=== PATIENT | male | born 1970 | race African-American/Black ===

== ENCOUNTER 2024-06-01 11:05 | Outpatient (CLI) | payer BC | END 2024-06-01 19:53 | disposition home or self-care (01) | LOC: SCT 11:05 | PROVIDERS: ATTEND Student in an Organized Health Care Education/Training Program | DX: M17.11 Unilateral primary osteoarthritis, right knee (principal) ==

== ENCOUNTER 2024-06-13 11:41 | Day surgery (SDC) | payer BC ==
[2024-06-08 11:49] LABS: CALCIUM 9.5 mg/dL (8.4-11.0); CREATININE 1.16 mg/dL (0.55-1.30); POTASSIUM 4.2 mmol/L (3.5-5.1); PROTHROMBIN TIME 10.5 SECS (9.5-12.5); TOTAL BILIRUBIN 0.5 mg/dL (0.0-1.0); TOTAL PROTEIN, SERUM 7.8 g/dL (6.4-8.3)
[2024-06-08 11:54] LABS: BASOPHILS # (AUTO) 0.1 K/uL (0.0-0.2); BASOPHILS % (AUTO) 0.5 % (0.0-2.0); EOSINOPHILS # (AUTO) 0.3 K/uL (0.0-0.4); EOSINOPHILS % (AUTO) 2.9 % (0.0-4.0); HEMATOCRIT 51.5 % (36-54); HEMOGLOBIN 16.8 g/dL (14.0-18.0); LYMPHOCYTES # (AUTO) 2.3 K/uL (1.0-5.5); LYMPHOCYTES % (AUTO) 23.4 % (20.5-51.5); MEAN CORPUSCULAR HEMOGLOBIN 26 pg (27-31); MEAN CORPUSCULAR HGB CONC 33 % (32-36); MEAN CORPUSCULAR VOLUME 80 fL (79.0-98.0); MONOCYTES # (AUTO) 0.6 K/uL (0.0-1.0); NEUTROPHILS # (AUTO) 6.6 K/uL (1.8-7.7); NEUTROPHILS % (AUTO) 67.2 % (40.0-70.0); PLATELET COUNT (AUTO) 290 K/uL (130-430); RED BLOOD CELL COUNT(AUTO) 6.42 MIL/uL (4.2-6.2); RED CELL DISTRIBUTION WIDTH 13.8 % (9.0-15.0); WHITE BLOOD COUNT (AUTO) 9.8 K/uL (4.8-10.8)
[2024-06-08 12:13] LABS: HEMOGLOBIN A1C 6.5 % (<5.7)
[~2024-06-13] VITALS: Ht 185.4 cm; Wt 122.5 kg
[~2024-06-13 11:41] MED LIST: CEFAZOLIN SOD 2 GM in D5W 50 ML IV ONE; HYDROmorphone 1 MG/ML INJ. CARTRIDGE IVP PRN; LORATADINE 10 MG TABLET PO PRN; ceFAZolin SODIUM 2 GM in D5W 50 ML IV SCH; oxyCODONE HCL 5 MG TABLET PO PRN; traMADol HCL HCL 50 MG TABLET (ULTRAM) PO PRN
[2024-06-13] MEDS ORDERED: ONDANSETRON HCL 4 MG/2 ML VIAL IVP PRN (11:45)
[2024-06-13] MEDS ORDERED: CELECOXIB 100 MG CAPSULE ONE (11:48)
[2024-06-13] MEDS ORDERED: SCOPOLAMINE HYDROBROMIDE 1 MG PATCH .72 H (TRANSDERM-SCOP) TD ONE (11:48)
[2024-06-13] MEDS ORDERED: GABAPENTIN 300 MG CAPSULE ONE (11:48)
[2024-06-13] MEDS ORDERED: oxyCODONE HCL 10 MG TAB.ER.12H PO ONE (11:48)
[2024-06-13] MEDS ORDERED: ACETAMINOPHEN 500 MG TABLET ONE (11:48)
[2024-06-13] MEDS ORDERED: ONDANSETRON HCL 4 MG/2 ML VIAL ONE ×2 (12:15→15:55)
[2024-06-13] MEDS ORDERED: SEVOFLURANE 15 MIN GAS INH ONE (12:15)
[2024-06-13] MEDS ORDERED: TRANEXAMIC ACID 1,000 MG/10 ML VIAL ONE (12:15)
[2024-06-13] MEDS ORDERED: WATER FOR IRRIGATION,STERILE 1,000 ML IRRIG.SOLN IR ONE (12:15)
[2024-06-13] MEDS ORDERED: VANCOMYCIN HCL 1000 MG/VIAL IV ONE (12:15)
[2024-06-13] MEDS ORDERED: SUCCINYLCHOLINE CHLORIDE 20 MG/ML(QUELICIN) ONE (12:15)
[2024-06-13] MEDS ORDERED: METOCLOPRAMIDE HCL 10 MG/2 ML VIAL ONE (12:15)
[2024-06-13] MEDS ORDERED: LIDOCAINE/EPI 2% 1:100000 20 ML VIAL INJ ONE (12:15)
[2024-06-13] MEDS ORDERED: ROCURONIUM BROMIDE 10 MG/ML (ZEMURON) ONE (12:15)
[2024-06-13] MEDS ORDERED: NS IRRIG SOLN 1000 ML IR ONE (12:15)
[2024-06-13] MEDS ORDERED: KETOROLAC TROMETHAMINE 30 MG VIAL ONE (12:15)
[2024-06-13] MEDS ORDERED: GLYCOPYRROLATE 0.2 MG/ML VIAL ONE (12:15)
[2024-06-13] MEDS ORDERED: PHENYLEPHRINE HCL 10 MG/ML VIAL (NEOSYNEPHRINE) ONE (12:15)
[2024-06-13] MEDS ORDERED: NEOSTIGMINE METHYLSULFATE 1 MG/ML, 10 ML VIAL ONE (12:15)
[2024-06-13] MEDS ORDERED: LR 1,000 ML IV.SOLN IV ONE (12:15)
[2024-06-13] MEDS ORDERED: ePHEDrine sulfate 50 MG/ML VIAL ONE (12:15)
[2024-06-13] MEDS ORDERED: BUPIVACAINE /PF 0.5% 30 ML VIAL ONE (12:15)
[2024-06-13] MEDS ORDERED: PROPOFOL 200MG/ 20ML VIAL (DIPRIVAN) IV ONE (12:15)
[2024-06-13] MEDS: ACETAMINOPHEN 500 MG TABLET PO ONE (12:18)
[2024-06-13] MEDS: SCOPOLAMINE HYDROBROMIDE 1 MG PATCH .72 H (TRANSDERM-SCOP) TD ONE (12:18)
[2024-06-13] MEDS: CELECOXIB 100 MG CAPSULE PO ONE (12:18)
[2024-06-13] MEDS: GABAPENTIN 300 MG CAPSULE PO ONE (12:18)
[2024-06-13] MEDS ORDERED: HYDROmorphone 2 MG/ML VIAL ONE ×2 (12:22→14:39)
[2024-06-13] MEDS ORDERED: DIPHENHYDRAMINE INJ 50 MG/ML VIAL ONE (12:28)
[2024-06-13] MEDS: DIPHENHYDRAMINE INJ 50 MG/ML VIAL IVP ONE (12:35)
[2024-06-13] MEDS: oxyCODONE HCL 10 MG TAB.ER.12H PO ONE (12:38)
[2024-06-13] MEDS ORDERED: LACTULOSE 20 GM/30 ML UDC PO PRN (12:45)
[2024-06-13] MEDS ORDERED: DIPHENHYDRAMINE HCL 25 MG CAPSULE PO PRN (12:45)
[2024-06-13] MEDS ORDERED: BISACODYL 10 MG/SUPPOSITORY RC PRN (12:45)
[2024-06-13] MEDS ORDERED: METOCLOPRAMIDE HCL 10 MG/2 ML VIAL IVP PRN ×2 (12:45→14:30)
[2024-06-13 12:53] VITALS: PULSE 94; RESP 18; TEMP 96.2; O2SAT 98
[2024-06-13] MEDS ORDERED: KETOROLAC TROMETHAMINE 10 MG TABLET (TORADOL) PO SCH (14:00)
[2024-06-13] MEDS ORDERED: ACETAMINOPHEN 500 MG TABLET PO SCH (14:00)
[2024-06-13] MEDS ORDERED: TAMSULOSIN HCL 0.4 MG CAP PO ONE ×2 (14:00→17:00)
[2024-06-13] MEDS ORDERED: HYDROmorphone 2 MG/ML VIAL IVP PRN (14:30)
[2024-06-13] MEDS ORDERED: HYDROmorphone 1 MG/ML INJ. CARTRIDGE IVP PRN (14:30)
[2024-06-13] MEDS ORDERED: ACETAMINOPHEN I.V. 1000 MG 100 ML IV ONE (14:39)
[2024-06-13 15:23] VITALS: BP_SYST 128
[2024-06-13] MEDS: HYDROmorphone 1 MG/ML INJ. CARTRIDGE IVP PRN (15:51)
[2024-06-13] MEDS ORDERED: HYDROmorphone 1 MG/ML INJ. CARTRIDGE ONE (15:55)
[2024-06-13] MEDS: ONDANSETRON HCL 4 MG/2 ML VIAL IVP PRN (15:56)
[2024-06-13] MEDS ORDERED: SENNOSIDES/DOCUSATE SODIUM 1 TAB TABLET(SENOKOT-S) PO SCH (21:00)
[2024-06-14] MEDS ORDERED: ASPIRIN 81 MG TAB.CHEW PO SCH (09:00)
[2024-06-14] MEDS ORDERED: TAMSULOSIN HCL 0.4 MG CAP PO SCH (09:00)
[2024-06-14] MEDS ORDERED: CELECOXIB 200 MG CAPSULE PO SCH (11:00)
== END 2024-06-13 18:01 | disposition home or self-care (01) ==
LOC: SDS 11:41 → SMU 11:42 → EDSTATUS 13:30 → SDS 18:01
PROVIDERS: ATTEND Student in an Organized Health Care Education/Training Program
DX: M17.11 Unilateral primary osteoarthritis, right knee (principal); M25.761 Osteophyte, right knee; M25.561 Pain in right knee; I10 Essential (primary) hypertension; E11.9 Type 2 diabetes mellitus without complications; G47.33 Obstructive sleep apnea (adult) (pediatric); K21.9 Gastro-esophageal reflux disease without esophagitis; E78.5 Hyperlipidemia, unspecified; E66.9 Obesity, unspecified; Z68.35 Body mass index [BMI] 35.0-35.9, adult; Z98.1 Arthrodesis status; Z98.890 Other specified postprocedural states; Z79.899 Other long term (current) drug therapy; Z88.5 Allergy status to narcotic agent; Z88.8 Allergy status to other drugs, medicaments and biological substances
CPT/HCPCS: 80053; 83037; 85025; 85610; 85730; 87081; 36415; 71046; 27447; 97162; 64447; 73560; 97112; 97530; 97116; 82948; 88305; 88311; J3490 ×3; J0690; J0696; J1200; J1885; J2765; J2405; J2704; J0330; J3370; J1170 ×2; J7060 ×2; J7120; C1776 ×3; C1713 ×2; J0131; J2710